=== PATIENT | male | born 1930 | race Hispanic/Latino ===

== ENCOUNTER 2021-04-18 07:40 | Day surgery (SDC) | payer MEDICARE ==
[~2021-04-18 07:40] MED LIST: 0.9%NACL 1000ML 1,000 ML IV ONE; AMLO-257 PO; BENA10TA77 PO; LEVO50CA4 PO; LOVA10TA2 PO; POTA-202 PO; UMEC1DIS IH
[2021-04-18 08:01] VITALS: BP 111/47
[2021-04-18] MEDS ORDERED: PROPOFOL 10 MG/ML 20ML VIAL IV ONE (10:02)
[2021-04-18] MEDS ORDERED: GLYCOPYRROLATE 1 MG/5 ML SYRINGE ONE (10:16)
[2021-04-18 10:30] VITALS: BP 103/42
[2021-05-03] MEDS ORDERED: BRIM5DRO OP (17:05)
[2021-05-03] MEDS ORDERED: FURO40TA5 PO (17:05)
[2021-05-03] MEDS ORDERED: LOVA10TA2 PO (17:05)
[2021-05-03] MEDS ORDERED: POTA-79 PO (17:05)
[2021-05-03] MEDS ORDERED: DORZ10DR9 OD (17:05)
[2021-05-03] MEDS ORDERED: LATA2.5D14 OP (17:05)
[2021-05-03] MEDS ORDERED: NETA2.5D OP (17:05)
[2021-05-03] MEDS ORDERED: AMLO-257 PO (17:05)
== END 2021-04-18 11:09 | disposition home or self-care (01) ==
LOC: ENDO 07:40 → DAH 07:40 → ENDO 11:09
PROVIDERS: ATTEND Internal Medicine Gastroenterology
DX: D50.9 Iron deficiency anemia, unspecified (principal); D12.5 Benign neoplasm of sigmoid colon; K20.90 Esophagitis, unspecified without bleeding; K29.50 Unspecified chronic gastritis without bleeding; K56.691 Other complete intestinal obstruction; K31.89 Other diseases of stomach and duodenum; I10 Essential (primary) hypertension; E78.5 Hyperlipidemia, unspecified; J44.9 Chronic obstructive pulmonary disease, unspecified; Z79.899 Other long term (current) drug therapy; Z20.822 Contact with and (suspected) exposure to COVID-19
CPT/HCPCS: 43239; 45380; 45381; 45385; 87635; 88305; 88342; 88361; A4215 ×2; A4221; A4222; A4223; A4606; A4620; A4663; C9803; J2704; J3490; J7030